=== PATIENT | male | born 1990 | race Two or more races ===

== ENCOUNTER 2018-06-20 19:03 | Emergency (ER) | payer MEDICAID, OTHER ==
[~2018-06-20] VITALS: Ht 177.8 cm; Wt 79.4 kg
[2018-06-20 19:54] VITALS: BP 153/93
== END 2018-06-20 20:32 | disposition home or self-care (01) ==
LOC: ER 19:10
DX: J06.9 Acute upper respiratory infection, unspecified (principal); F17.210 Nicotine dependence, cigarettes, uncomplicated

== ENCOUNTER → 2025-03-02 | Day surgery (SDC) | payer BC, MEDICAID ==
[2025-02-26 14:04] LABS: Hematocrit 48.3 % (41.0-53.0); Hemoglobin 16.9 g/dL (13.5-17.5); Mean Corpuscular Hemoglobin 32.8 pg (28.0-32.0); Mean Corpuscular Volume 93.9 fL (80.0-100.0); Nucleated Red Blood Cells % 0.0 %
[2025-02-26 14:07] LABS: Urine Protein, UAD Negative (Negative)
[2025-02-26 14:18] LABS: INR 0.98 (0.9-1.15); Partial Thromboplastin Time 28.2 SEC (24.5-34.5); Prothrombin Time 10.4 sec (9.3-11.8)
[2025-02-26 14:37] LABS: Alkaline Phosphatase 60 U/L (46-116); Anion Gap 8 (5-15); BUN/Creatinine Ratio 17.9 (10.0-20.0); Bilirubin, Total 0.4 mg/dL (0.2-1.0); Blood Urea Nitrogen 17 mg/dL (9-23); Calcium 9.5 mg/dL (8.7-10.4); Carbon Dioxide 28 mmol/L (20-31); Chloride 102 mmol/L (98-107); Glucose 92 mg/dL (74-106); Potassium 4.3 mmol/L (3.5-5.1); Sodium 138 mmol/L (136-145); Total Protein 7.4 g/dL (5.7-8.2)
[2025-02-26 14:39] LABS: Alanine Aminotransferase 72 U/L (7-40); Albumin 4.9 g/dL (3.2-4.8)
[~2025-03-02] VITALS: Ht 177.8 cm; Wt 99.8 kg
[~2025-03-02] MED LIST: CYAN-17 PO; HYDROmorphone HCL 2 MG/ML VL/or syr IV PRN; METOCLOPRAMIDE HCL 5MG/ml INJ 2ml VIAL ONE; MIDAZOLAM HCL 2MG/2ML 2ml VIAL (1mg/ml) ONE; NUTRTAB OR; ONDANSETRON HCL 4 MG/2 ML VIAL IV ONE; ONDANSETRON HCL 4 MG/2 ML VIAL ONE; PROPOFOL 10 MG/ML 20 ML IV ONE; TURM500C3 OR; ceFAZolin 2 GM/D5W50ml 50 ML IV ONE; fentaNYL CITRATE 100 MCG/2 ML VL ONE
--- NOTE | 2025-03-02 13:05 | DVHDS2 ---
New Physician D'charge PN Admitting Diagnosis Admitting Diagnosis Desired vasectomy Discharge Diagnosis Same Operations or Procedures Bilateral vasectomy Reason(s) For Hospitalization Surgery Treatment Plan Discharge Condition of Discharge Good Disposition Home Discharge Instructions Diet: Regular Activity: Light activity Activity comment: Activity as tolerated Medications: Given Follow Up Care Follow Up/Referral: Sperm count in two months Discharge Statement: "Patient was advised to return to the ER or call 911 if any headaches, dizzi ness, shortness of breath, chest pain, abdominal pain, bleeding, fevers, or worsening of medical condition. Patient was counseled about treatment plan, medications, possible side effects, patientverbalized understanding. All questions were answered to the best of my ability. This discharge took greater then 30 minutes in planning, reviewing documentation, counseling the patient, and discussing with other team members." JEMAL AVERY MD Mar 02, 2025 13:05
--- NOTE | 2025-03-02 13:05 | DVHNC2 ---
Procedure - OPERATIVE REPORT Pre-op. Diagnosis: Male Desired Sterilization Post-op. Diagnosis: Same as pre-op diagnosis Operation: Bilateral Vasectomy (No scalpel technique) Anesthesia: General Indications: INDICATION: Male Desired Sterilization CONSENT: The procedure was explained. Complications including but not limited to infection, bleeding, post-procedural swelling, potential for re-establishment of vas continuity and return of fertility were discussed. Informed consent was obtained. Details of Procedure: The patient was placed supine and general anesthesia is admininstered. His genitals were shaved, prepped, and draped in the surgical standard fashion. Using sterile techniques, bilateral vasectomy was performed using a non-scalpel technique after administration of local anesthetic using 1% Lidocaine with Epi. Both Vas Deferens were identified, brought to the surface of scrotal skin through midline puncture site, grasped, doubly clipped and ligated, the edges were fulgurated. Layer of adventitial tissue is placed between the two ends of the divided vas deferens. Hemostasis was obtained and both ends of the vas were returned to their respected locations inside the skye-scrotum. The skin puncture site is left open. Specimens: Bilateral Vas Segments Complications: None Findings: N/A Notes: DISPOSITION: Patient tolerated the procedure well and was discharged home. He will be prophylactically treated with appropriate antibiotics for 5-days. He has been instructed to refrain from sexual activity for 7-days, use scrotal support, and to apply ice pack to both skye-scrotum for 36-48 hours. He is then instructed to engage in at least 20 episodes of sexual ejaculatory episodes before obtaining a sperm analysis during a course of 4-6 weeks. Once he has been confirmed to have zero sperms count, he will then be considered sterile but he is required to use contraception until such time. Patient understands and will follow-up accordingly. JEMAL AVERY MD Mar 02, 2025 13:05
[2025-03-02 13:50] VITALS: PULSE 71; RESP 10; TEMP 98.6; O2SAT 97
[2025-03-02] MEDS: LIDOCAINE W/ EPINEPHRINE 1% 20ML VIAL ONE (14:02)
[2025-03-02] MEDS: BACITRACIN TOP OINT 1 UD PKG TOP ONE (14:04)
[2025-03-02 15:00] VITALS: BP 118/77; PULSE 68; RESP 15; O2SAT 100
== END | disposition home or self-care (01) ==
LOC: SUR 11:25
PROVIDERS: ATTEND Urology
DX: Z30.2 Encounter for sterilization (principal); Z79.899 Other long term (current) drug therapy; Z98.890 Other specified postprocedural states
CPT/HCPCS: 36415; 55250; 80053; 81001; 85025; 85610; 85730; 87086; 88305; J0690; J2250; J2405; J2704; J2765; J3010